=== PATIENT | female | born 1940 ===

== ENCOUNTER 2018-01-14 17:41 | Inpatient (IN) | payer MEDICARE ==
[2018-01-14 17:41] VITALS: BMI 27.3
[2018-01-14 18:23] LABS: BASO # 0.1 K/uL (0.0-0.2); BASO % 0.9 % (0.0-2.0); EOS # 0.3 K/uL (0.0-0.7); EOS % 3.6 % (0.0-4.0); HEMOGLOBIN 11.3 g/dL (12.0-16.0); LYMPH # 1.4 K/uL (1.0-4.3); LYMPH % 20.4 % (20.0-40.0); MEAN CELL VOLUME 70.2 fl (81.0-99.0); MEAN CORPUSCULAR HEMOGLOBIN 22.1 pg (27.0-31.0); MEAN CORPUSCULAR HGB CONC 31.5 g/dL (33.0-37.0); MONO # 0.7 K/uL (0.0-0.8); MONO % 9.6 % (0.0-10.0); NEUT # 4.7 K/uL (1.8-7.0); NEUT % 65.5 % (50.0-75.0); NRBC % 0.1 % (0.0-0.0); RBC 5.11 Mil/uL (3.80-5.20); RED CELL DISTRIBUTION WIDTH 22.2 % (11.5-14.5); WHITE BLOOD COUNT 7.1 K/uL (4.8-10.8)
[2018-01-14 18:30] LABS: INR 0.9; PROTHROMBIN TIME 10.7 Seconds (9.8-13.1)
[2018-01-14 18:33] LABS: ALB/GLOB RATIO 1.4 (1.0-2.1); ALBUMIN 4.3 g/dL (3.5-5.0); ALT/SGPT 29 U/L (9-52); AST/SGOT 32 U/L (14-36); BLOOD UREA NITROGEN 22 mg/dl (7-17); GFR NON-AFRICAN AMERICAN > 60; PARTIAL THROMBOPLASTIN TIME 26.3 Seconds (25.6-37.1)
--- NOTE | 2018-01-14 18:50 | ED PDOC ---
HPI: Trauma/Fall - HPI Time Seen by Provider: 01/14/18 17:48 Chief Complaint (Nursing): Trauma Chief Complaint (Provider): Trauma History Per: Patient History/Exam Limitations: no limitations Onset/Duration Of Symptoms: Hrs (STOCK RECEIVER) Injury Occurred (Timing): Just Before Arrival Location Of Injury: Right: Ankle Additional Complaint(s): 77 year old female with a history of hypertension and high cholesterol presents to the ED with right ankle pain. 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 Patient is unable to walk on right ankle. Her right ankle is swollen and deformed. She has sharp pain that is worse when she tries to move or touch it, but she denies any numbness. PMD: [place] Past Medical History Reviewed: Historical Data, Nursing Documentation, Vital Signs Vital Signs: Last Vital Signs Temp 97.7 F 01/14/18 17:44 Pulse 69 01/14/18 17:44 Resp 18 01/14/18 17:44 BP 192/69 H 01/14/18 17:44 Pulse Ox 100 01/14/18 17:44 - Medical History PMH: HTN, Hypercholesterolemia - Family History Family History: States: Unknown Family Hx - Home Medications Home Medications: Ambulatory Orders Medication Instructions Recorded RX: Atorvastatin [Lipitor] 10 mg PO HS 08/23/16 RX: Meclizine HCl 12.5 mg PO DAILY PRN 08/23/16 RX: amLODIPine [Norvasc] 5 mg PO DAILY 08/23/16 Acetaminophen with Codeine 1 tab PO Q4H PRN #15 tab 01/14/18 [Tylenol with Codeine No. 3 300 mg-30 mg] RX: Hydrochlorothiazide [Microzide] 12.5 mg PO DAILY 01/14/18 RX: Ibuprofen [Motrin Tab] 600 mg PO Q8 PRN #30 tab 01/14/18 Piperacill/Tazo 3.375gm in Dex 3.375 gm IVPB Q8 #15 bag 01/19/18 [Zosyn 3.375 Gm IV] RX: Enoxaparin [Lovenox] 40 mg SC DAILY syr 01/19/18 RX: oxyCODONE/Acetaminophen 1 tab PO Q4 PRN #10 tab 01/19/18 [Percocet 5/325 mg Tab] Vancomycin 1gm in NS 250ml 1 gm IVPB Q12 #10 bag 01/19/18 [Vancomycin 1gm] - Allergies Allergies/Adverse Reactions: Allergies Allergy/AdvReac Type Severity Reaction Status Date / Time No Known Allergies Allergy Verified 01/14/18 17:44 Review of Systems ROS Statement: Except As Marked, All Systems Reviewed And Found Negative Musculoskeletal: Positive for: Other (right ankle pain) Physical Exam - Reviewed Nursing Documentation Reviewed: Yes Vital Signs Reviewed: Yes - Physical Exam Appears: Positive for: Non-toxic, In Acute Distress (painful) Head Exam: Positive for: ATRAUMATIC, NORMOCEPHALIC Skin: Positive for: Warm, Dry Eye Exam: Positive for: EOMI, PERRL ENT: Positive for: Pharynx Is (CLEAR). Negative for: Pharyngeal Erythema, Tonsillar Exudate Neck: Positive for: Painless ROM, Supple Cardiovascular/Chest: Positive for: Regular Rate, Rhythm. Negative for: Murmur Respiratory: Positive for: Normal Breath Sounds. Negative for: Rales, Respiratory Distress Gastrointestinal/Abdominal: Positive for: Soft. Negative for: Tenderness Back: Positive for: Normal Inspection. Negative for: Decreased ROM Extremity: Positive for: Other (Right ankle: diffuse swelling with faint ecchymosis and tenderness to palpation of malleolus with inward angulation at the ankle. Toes move freely, light touch intact, all nerve distribution of foot are less than two second capillary refill, and strong pedal pulse) Lymphatic: Negative for: Adenopathy Neurologic/Psych: Positive for: Alert. Negative for: Motor/Sensory Deficits - Laboratory Results Result Diagrams: 01/19/18 05:40 01/19/18 05:40 - ECG ECG: Positive for: Interpreted By Id ECG Rhythm: Positive for: Normal ST Segment, Sinus Rhythm O2 Sat by Pulse Oximetry: 100 (RA) Pulse Ox Interpretation: Normal Medical Decision Making Medical Decision Making: Time: 1802 Impression: Right ankle injury Fracture vs sprain Initial Plan: --Type and screen --CMP --CBC with differentials --PTT --PT --CXR --Morphine 3 mg IVP --Right ankle XR Time: 1921 --XR demonstrated displaced and dislocated trimalleolar fracture. Case discussed with podiatry resident for further evaluation. 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 Pt to be reduced in ER under procedural sedation --Consents obtained (see forms) [facility] [employer]. --NPO 4 hours ETCO2: Prior to procedure 29, lowest during procedure 24, post procedure 30 Time: 2129 --Postreduction and immobilized. Pt awake and in good spirits. --Improved fracture alignment on postreduction xrays. 2219 Pt continues to be alert and awake. Crutch training in progress 2299 Pt unable to use crutches due to general weakness. High risk fall. Hospitalized for continued management. BELLA Carmen PMD. Scribe Attestation: Documented by Miladis Castro, acting as a scribe for Herlinda Piper MD Provider Scribe Attestation: All medical record entries made by the Scribe were at my direction and personally dictated by me. I have reviewed the chart and agree that the record accurately reflects my personal performance of the history, physical exam, medical decision making, and the department course for this patient. I have also personally directed, reviewed, and agree with the discharge instructions and disposition. Disposition - Clinical Impression Clinical Impression: Closed trimalleolar fracture of ankle, Ankle dislocation, Weakness - Patient ED Disposition Is Patient to be Admitted: Yes Counseled Patient/Family Regarding: Studies Performed, Diagnosis - Disposition Disposition Time: 22:27 Condition: FAIR - Pt Status Changed To: Hospital Disposition Of: Observation - POA Present On Arrival: Falls Or Trauma ED Procedural Sedation - Pre Anesthesia Assessment Chief Complaint: Trauma Last Known Meal: 4 hours ~5pm Past Medical History: Medications Reviewed, Allergies Reviewed, Record Review Previous Surgies: Reviewed Family History/Social History: Reviewed - Physical Exam/Review of Systems Vital Signs Reviewed: Yes Cardiovascular: Regular Rate and Rhythm, Normal S1, S2. denies: Murmurs Respiratory/Chest: Clear to Auscultation, Good Air Exchange. denies: Respiratory Distress, Accessory Muscle Use Neurological: GCS=15, CN II-XII Intact, Speech Normal Abdomen: denies: Tenderness, Distention, Normal Bowel Sounds, Peritoneal Signs Mental Status: Alert and Oriented X 3 - Pre-Procedure Airway Assessment History of difficult intubation or surgical airway (i.e trach):: No Inability to extend neck:: No Mouth opening less than two finger breadth:: No Diagnosis of sleep apnea:: No Less than three finger breadth to hyoid bone:: No ASA Criteria: 1 - Healthy, normal. 2 - Mild systemic disease (No functional limitations, mildline obesity, DM withot complications, Hypertention). 3 - Severe systemic disease (Some functional limitation, stable angina, morbid obesity, controlled COPD/Asthma/CHF). 4 - Sever systemic disease constant threat to life (Unstable angina, active symptoms of COPD/Asthma, CHF/Hypertension. 5 - Moribund ASA Clarification: ASA II Mallampati (airway): Class II - Intra-Procedure (Medications) Medications Given: Discontinued Medications Lidocaine HCl (Lidocaine 1% (20ml)) 20 ml IJ ONCE ONE Stop: 01/14/18 20:53 Morphine Sulfate (Morphine) 3 mg IVP STAT STA Stop: 01/14/18 18:05 Last Admin: 01/14/18 18:12 Dose: 3 mg MAR Pain Assessment Document 01/14/18 18:12 (Rec: 01/14/18 18:12 [email or web address]) Pain Reassessment Is this a pain reassessment? No IVP Administration Document 01/14/18 18:12 (Rec: 01/14/18 18:12 [email or web address] Charges for Administration # of IVP Administrations 1 Propofol (Diprivan) 200 mg IV ONCE ONE Stop: 01/14/18 20:55 MD pushed first does Propofol. See scanned procedure note. Physician Pushed Medication: Yes - Post-Procedure Post Procedure Note: Reevaluation 30 minutes post sedation: pt awake, oriented x 3. Offers no new complaints.
--- NOTE | 2018-01-14 20:27 | CP.PCM.CON ---
History of Present Illness - History of Present Illness History of Present Illness: Podiatry Consult Note for Dr. Oswald: 77 yo female patient, with PMHx of HTN and HLD, seen and evaluated at bedside for R ankle pain. Patient states that she fell down three steps this afternoon and was immediately unable to weightbear. Patient currently rates her pain as 4/10 at this time, however experiences sharp pains when she tries to move the ankle. Denies any other pedal complaints, denies numbness and tingling. Denies N/V/F/SOB/CP/Chills. PMHx: HTN, HLD PSHx: Denies ALL: NKDA Review of Systems - Review of Systems Review of Systems: As per HPI Past Patient History - Past Social History Smoking Status: Never Smoked - CARDIAC Hx Hypercholesterolemia: Yes Hx Hypertension: Yes - PSYCHIATRIC Hx Substance Use: No - SURGICAL HISTORY Hx Surgeries: No - ANESTHESIA Hx Anesthesia: No Meds Allergies/Adverse Reactions: Allergies Allergy/AdvReac Type Severity Reaction Status Date / Time No Known Allergies Allergy Verified 01/14/18 17:44 Physical Exam - Constitutional Appears: Well, Non-toxic, No Acute Distress - Head Exam Head Exam: ATRAUMATIC, NORMOCEPHALIC - Extremities Exam Additional comments: RLE focused exam: Vascular: DP/PT 2/4 bilaterally, CFT < 3 seconds to all digits, TG warm to warm, +2 edema noted circumfrentially to the ankle, perimalleolar Ortho: Gross deformity noted to the ankle joint with lateral dislocation of the foot in relation to the leg, pain to palpation of the ankle joint appreciated Neuro: Gross and protective sensation intact Derm: No open lesions, mild erythema with ecchymosis noted to ankle joint circumferential - Neurological Exam Neurological exam: Alert, Oriented x3 - Psychiatric Exam Psychiatric exam: Normal Affect, Normal Mood Results - Vital Signs Recent Vital Signs: Last Vital Signs Temp 97.7 F 01/14/18 17:44 Pulse 69 01/14/18 17:44 Resp 18 01/14/18 17:44 BP 192/69 H 01/14/18 17:44 Pulse Ox 100 01/14/18 19:24 - Labs Result Diagrams: 01/14/18 18:15 01/14/18 18:15 Labs: Laboratory Results - last 24 hr 01/14/18 01/14/18 01/14/18 18:15 18:15 18:15 WBC 7.1 RBC 5.11 Hgb 11.3 L Hct 35.9 MCV 70.2 L D MCH 22.1 L MCHC 31.5 L RDW 22.2 H Plt Count 187 MPV 10.0 Neut % (Auto) 65.5 Lymph % (Auto) 20.4 [place] % (Auto) 9.6 Eos % (Auto) 3.6 Baso % (Auto) 0.9 Neut # (Auto) 4.7 Lymph # (Auto) 1.4 [place] # (Auto) 0.7 Eos # (Auto) 0.3 Baso # (Auto) 0.1 PT 10.7 INR 0.9 APTT 26.3 Sodium 139 Potassium 3.7 Chloride 103 Carbon Dioxide 29 Anion Gap 11 BUN 22 H Creatinine 0.7 Est GFR ( Amer) > 60 Est GFR (Non-Af Amer) > 60 Random Glucose 112 H Calcium 10.0 Total Bilirubin 0.4 AST 32 ALT 29 Alkaline Phosphatase 95 Total Protein 7.5 Albumin 4.3 Globulin 3.2 Albumin/Globulin Ratio 1.4 Blood Type Antibody Screen BBK History Checked 01/14/18 18:15 WBC RBC Hgb Hct MCV MCH MCHC RDW Plt Count MPV Neut % (Auto) Lymph % (Auto) [place] % (Auto) Eos % (Auto) Baso % (Auto) Neut # (Auto) Lymph # (Auto) [place] # (Auto) Eos # (Auto) Baso # (Auto) PT INR APTT Sodium Potassium Chloride Carbon Dioxide Anion Gap BUN Creatinine Est GFR ( Amer) Est GFR (Non-Af Amer) Random Glucose Calcium Total Bilirubin AST ALT Alkaline Phosphatase Total Protein Albumin Globulin Albumin/Globulin Ratio Blood Type O POSITIVE Antibody Screen Negative BBK History Checked No verified bt Assessment & Plan - Assessment and Plan (Free Text) Assessment: 77 yo female patient, with PMHx of HTN and HLD, seen and evaluated at bedside for R dislocated ankle with trimalleloar fracture Plan: Patient seen and evaluated with all questions and concerns addressed R ankle x-rays taken and reviewed; gross dislocation of the ankle joint with subsequent fibular and tibia fractures, official read pending After obtaining consent, hematoma block of 8cc of 2% lidocaine given and closed reduction of R ankle was performed AO splint applied to RLE Post reduction x-rays taken; ankle within ankle mortise, reduction obtained, official read pending CT of RLE ordered; results pending Encouraged patient to keep leg elevated and ice behind knee multiple times daily Patient to remain strict NWB to RLE with the use of crutches Patient to follow up with Dr. Oswald in clinic at [facility] on Tuesday's or in office Thank you for the consult - Date & Time Date: 01/14/18 Time: 21:45
[2018-01-14] MEDS ORDERED: Lidocaine 1% Inj (20ml) IJ ONE (20:52)
[2018-01-14] MEDS ORDERED: Propofol 10 mg/ml Inj (20 ML) IV ONE (20:54)
[2018-01-14] MEDS ORDERED: Propofol 10 mg/ml Inj (20 ML) ONE (20:55)
[2018-01-14] MEDS ORDERED: Lidocaine PF 2% (5 ml) Inj (For Cardiac Arrhy) ONE ×2 (20:56→20:59)
--- NOTE | 2018-01-15 08:38 | CARD ---
APPROVED REPORT Date of service: 01/14/2018 EKG Measurement Heart [id number] <Conclusion> Normal sinus rhythm Possible Left atrial enlargement Nonspecific ST abnormality Abnormal ECG
--- NOTE | 2018-01-15 08:40 | RAD ---
Date of service: 01/14/2018 PROCEDURE: Left Ankle Radiographs. HISTORY: R foot dislocation COMPARISON: 01/14/2018 at 18:37 FINDINGS: BONES: Three views of the right ankle were compared to the prior study. There has been significant interval reduction of previously identified ankle fracture dislocation. Ankle mortise is now in grossly normal anatomic position. Distal fibular and tibial fractures appear in improved alignment. Moderate soft tissue swelling persists. JOINTS: See above. SOFT TISSUES: Soft tissue swelling OTHER FINDINGS: Calcaneus and subtalar joint are unremarkable. IMPRESSION: Reduction of previously noted right ankle joint fracture and dislocation.
--- NOTE | 2018-01-15 09:02 | RAD ---
Date of service: 01/14/2018 PROCEDURE: CHEST RADIOGRAPH, 1 VIEW HISTORY: RIGHT ankle injury COMPARISON: None available. FINDINGS: LUNGS: No focal infiltrate. Minimal linear scarring in the right lower lobe. PLEURA: No pneumothorax or pleural fluid seen. CARDIOVASCULAR: Minimal aortic atherosclerotic calcification present. Heart is enlarged. OSSEOUS STRUCTURES: No significant abnormalities. VISUALIZED UPPER ABDOMEN: Normal. OTHER FINDINGS: None. IMPRESSION: No active disease.
[2018-01-15] MEDS: Enoxaparin 40 mg Syringe SC SCH (09:03)
--- NOTE | 2018-01-15 09:04 | RAD ---
Date of service: 01/14/2018 PROCEDURE: Right Ankle Radiographs. HISTORY: RIGHT ankle injury COMPARISON: None available. FINDINGS: BONES: Three views of the right ankle were performed. There is evidence of a severe right ankle dislocation with associated fractures. There is a comminuted angulated fracture of the distal right fibula and probable medial malleolar and possible posterior malleolar fractures. There is disruption of the ankle mortise. Talar dome is suboptimally evaluated due to overlap. No tarsal bone fracture is seen elsewhere. JOINTS: See above. SOFT TISSUES: Soft tissue swelling. OTHER FINDINGS: None. IMPRESSION: Probable trimalleolar fracture with ankle dislocation.
[2018-01-15 10:10] LABS: BASO % 0.4 % (0.0-2.0); EOS # 0.1 K/uL (0.0-0.7); EOS % 1.1 % (0.0-4.0); HEMOGLOBIN 10.2 g/dL (12.0-16.0); LYMPH % 13.3 % (20.0-40.0); MEAN CELL VOLUME 71.4 fl (81.0-99.0); MEAN CORPUSCULAR HGB CONC 30.8 g/dL (33.0-37.0); MEAN PLATELET VOLUME 9.2 fl (7.2-11.7); MONO # 0.6 K/uL (0.0-0.8); MONO % 8.2 % (0.0-10.0); NEUT # 5.6 K/uL (1.8-7.0); RBC 4.65 Mil/uL (3.80-5.20); WHITE BLOOD COUNT 7.2 K/uL (4.8-10.8)
[2018-01-15 10:49] LABS: LDL CHOLESTEROL 87 mg/dL (0-129)
[2018-01-15 10:52] LABS: T4 10.3 ug/dl (5.5-11.0)
[2018-01-15 11:25] LABS: BLOOD UREA NITROGEN 15 mg/dl (7-17); GFR NON-AFRICAN AMERICAN > 60
[2018-01-15 11:26] LABS: ALB/GLOB RATIO 1.4 (1.0-2.1); ALT/SGPT 26 U/L (9-52); AST/SGOT 30 U/L (14-36); CALCIUM 9.2 mg/dL (8.4-10.2)
[2018-01-15 11:27] LABS: HDL CHOLESTEROL 90 MG/DL (30-70)
--- NOTE | 2018-01-15 13:04 | CT ---
Date of service: 01/14/2018 PROCEDURE: CT scan of the right ankle without contrast HISTORY: R ankle dislocation COMPARISON: X-ray right ankle same day TECHNIQUE: CT scan of the right ankle was performed utilizing multiple helical axial images. Coronal and sagittal images were also obtained. The examination was performed with CT dose lowering techniques which would include iterative reconstruction, decreasing mA or kv dose. FINDINGS: There is evidence of a trimalleolar fracture of the right ankle which has been reduced since the prior x-ray exam. This would include oblique comminuted fracture of the distal right fibula, medial malleolar fracture and posterior malleolar fracture. Talar dome appears to be intact as well as the visualized calcaneus. Tarsal sinus and subtalar joint are unremarkable. Overlying soft tissue swelling is seen. Tiny bone fragment is also seen anterior to the tibial plafond region which may reflect additional small avulsion. IMPRESSION: Trimalleolar right ankle fracture.
--- NOTE | 2018-01-15 13:20 | CP.PCM.HP ---
History of Present Illness - History of Present Illness History of Present Illness: CC: R ankle pain. 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 Worsening symptoms: R ankle Fx and dislocation on X-Ray. Aggravated Factor: Walking/ weightbear. Pt denied: Fever, chills, n/v/d, abdominal pain, urinary symptoms, CP, syncope, numbness, tingles, SOB, cough, sick contact. EKG: Normal sinus rhythm. CXR: No active disease. R ankle CXR: Possible Trimalleolar Fx with ankle dislocation. Present on Admission - Present on Admission Any Indicators Present on Admission: No Review of Systems - Constitutional Constitutional: Frequent Falls - EENT Eyes: Other (negative) Ears: Other (negative) Nose/Mouth/Throat: Other (negative) - Cardiovascular Cardiovascular: Other (negative) - Respiratory Respiratory: Other (negative) - Gastrointestinal Gastrointestinal: Other (negative) - Genitourinary Genitourinary: Other (negative) - Musculoskeletal Musculoskeletal: Other (R ankle pain 2nd to fx.) - Integumentary Integumentary: Other (Ecchymosis around R ankle.) - Neurological Neurological: Other (negative) - Psychiatric Psychiatric: Other (negative) - Endocrine Endocrine: Other (negative) - Hematologic/Lymphatic Hematologic: Other (negative) Past Patient History - Past Medical History & Family History Pertinent Family History: Unknown - Past Social History Smoking Status: Never Smoked Alcohol: None Drugs: Denies Home Situation {Lives}: With Family - CARDIAC Hx Cardiac Disorders: Yes Hx Hypercholesterolemia: Yes Hx Hypertension: Yes - PULMONARY Hx Respiratory Disorders: No - NEUROLOGICAL Hx Neurological Disorder: No - HEENT Hx HEENT Problems: No - RENAL Hx Chronic Kidney Disease: No - ENDOCRINE/METABOLIC Hx Endocrine Disorders: No - HEMATOLOGICAL/ONCOLOGICAL Hx Blood Disorders: No - MUSCULOSKELETAL/RHEUMATOLOGICAL Hx Musculoskeletal Disorders: Yes Hx Falls: Yes - GASTROINTESTINAL Hx Gastrointestinal Disorders: No - GENITOURINARY/GYNECOLOGICAL Hx Genitourinary Disorders: No - PSYCHIATRIC Hx Psychophysiologic Disorder: No Hx Substance Use: No - SURGICAL HISTORY Hx Surgeries: No - ANESTHESIA Hx Anesthesia: No Hx Anesthesia Reactions: No Hx Malignant Hyperthermia: No Meds Home Medications: Home Medication List Medication Instructions Recorded Confirmed Type Acetaminophen with Codeine 1 tab PO Q4H PRN #15 tab 01/14/18 Rx [Tylenol with Codeine No. 3 300 mg-30 mg] Ibuprofen [Motrin Tab] 600 mg PO Q8 PRN #30 tab 01/14/18 Rx Enoxaparin [Lovenox] 40 mg SC DAILY syr 01/19/18 Rx Piperacill/Tazo 3.375gm in Dex 3.375 gm IVPB Q8 #15 bag 01/19/18 Rx [Zosyn 3.375 Gm IV] Vancomycin 1gm in NS 250ml 1 gm IVPB Q12 #10 bag 01/19/18 Rx [Vancomycin 1gm] oxyCODONE/Acetaminophen [Percocet 1 tab PO Q4 PRN #10 tab 01/19/18 Rx 5/325 mg Tab] Allergies/Adverse Reactions: Allergies Allergy/AdvReac Type Severity Reaction Status Date / Time No Known Allergies Allergy Verified 01/14/18 17:44 Physical Exam - Constitutional Appears: No Acute Distress - Head Exam Head Exam: NORMAL INSPECTION - Eye Exam Eye Exam: PERRL - ENT Exam ENT Exam: Normal Exam - Respiratory Exam Respiratory Exam: Clear to Auscultation Bilateral - Cardiovascular Exam Cardiovascular Exam: REGULAR RHYTHM - GI/Abdominal Exam GI & Abdominal Exam: Normal Bowel Sounds, Soft - Extremities Exam Additional comments: RLE with splint in place, increased pain with touching R ankle area. - Back Exam Back exam: NORMAL INSPECTION - Neurological Exam Neurological exam: Alert, Oriented x3 Additional comments: No motor/sensory deficit - Psychiatric Exam Psychiatric exam: Normal Mood - Skin Skin Exam: Warm Results - Vital Signs Recent Vital Signs: Last Vital Signs Temp 98.4 F 01/15/18 08:11 Pulse 78 01/15/18 09:06 Resp 20 01/15/18 08:11 BP 137/69 01/15/18 11:50 Pulse Ox 97 01/15/18 08:11 reviewed Louise - Labs Result Diagrams: 01/19/18 05:40 01/19/18 05:40 Labs: Laboratory Results - last 24 hr 01/14/18 01/14/18 01/14/18 18:15 18:15 18:15 WBC 7.1 RBC 5.11 Hgb 11.3 L Hct 35.9 MCV 70.2 L D MCH 22.1 L MCHC 31.5 L RDW 22.2 H Plt Count 187 MPV 10.0 Neut % (Auto) 65.5 Lymph % (Auto) 20.4 [place] % (Auto) 9.6 Eos % (Auto) 3.6 Baso % (Auto) 0.9 Neut # (Auto) 4.7 Lymph # (Auto) 1.4 [place] # (Auto) 0.7 Eos # (Auto) 0.3 Baso # (Auto) 0.1 PT 10.7 INR 0.9 APTT 26.3 Sodium 139 Potassium 3.7 Chloride 103 Carbon Dioxide 29 Anion Gap 11 BUN 22 H Creatinine 0.7 Est GFR ( Amer) > 60 Est GFR (Non-Af Amer) > 60 Random Glucose 112 H Calcium 10.0 Total Bilirubin 0.4 AST 32 ALT 29 Alkaline Phosphatase 95 Total Protein 7.5 Albumin 4.3 Globulin 3.2 Albumin/Globulin Ratio 1.4 LDL Cholesterol Direct Thyroxine (T4) TSH 3rd Generation Blood Type Blood Type Confirm Antibody Screen BBK History Checked 01/14/18 01/14/18 01/15/18 18:15 18:15 10:00 WBC 7.2 RBC 4.65 Hgb 10.2 L Hct 33.2 L MCV 71.4 L MCH 22.0 L MCHC 30.8 L RDW 22.0 H Plt Count 174 MPV 9.2 Neut % (Auto) 77.0 H Lymph % (Auto) 13.3 L [place] % (Auto) 8.2 Eos % (Auto) 1.1 Baso % (Auto) 0.4 Neut # (Auto) 5.6 Lymph # (Auto) 1.0 [place] # (Auto) 0.6 Eos # (Auto) 0.1 Baso # (Auto) 0.0 PT INR APTT Sodium Potassium Chloride Carbon Dioxide Anion Gap BUN Creatinine Est GFR ( Amer) Est GFR (Non-Af Amer) Random Glucose Calcium Total Bilirubin AST ALT Alkaline Phosphatase Total Protein Albumin Globulin Albumin/Globulin Ratio LDL Cholesterol Direct Thyroxine (T4) TSH 3rd Generation Blood Type O POSITIVE Blood Type Confirm O POSITIVE Antibody Screen Negative BBK History Checked No verified bt 01/15/18 10:00 WBC RBC Hgb Hct MCV MCH MCHC RDW Plt Count MPV Neut % (Auto) Lymph % (Auto) [place] % (Auto) Eos % (Auto) Baso % (Auto) Neut # (Auto) Lymph # (Auto) [place] # (Auto) Eos # (Auto) Baso # (Auto) PT INR APTT Sodium Potassium Chloride Carbon Dioxide Anion Gap BUN Creatinine Est GFR ( Amer) > 60 Est GFR (Non-Af Amer) > 60 Random Glucose Calcium Total Bilirubin AST ALT Alkaline Phosphatase Total Protein Albumin Globulin Albumin/Globulin Ratio LDL Cholesterol Direct 87 Thyroxine (T4) 10.3 TSH 3rd Generation 1.15 Blood Type Blood Type Confirm Antibody Screen BBK History Checked reviewed J.P. - EKG Data EKG comments: reviewed J.P. - Impressions Impression: R ankle X-Ray: Reviewed J.P. - Imaging and Cardiology Chest x-ray Status: Report reviewed by me (Louise) Assessment & Plan (1) Closed trimalleolar fracture of ankle Status: Deleted Priority: High (2) Ankle dislocation Status: Deleted Priority: High (3) HTN (hypertension) Status: Chronic Priority: Medium (4) Hypercholesterolemia Status: Chronic Priority: Medium - Assessment and Plan (Free Text) Assessment: S/P Reduction R ankle joint Fx and dislocation. Plan: Continue Morphine, Lovenox, Norvasc, Lipitor and rest of Tx, f/u PT, OT. Podiatry consult appreciated. - Date & Time Date: 01/15/18
--- NOTE | 2018-01-15 14:38 | CP.PCM.PN ---
Subjective - Date & Time of Evaluation Date of Evaluation: 01/15/18 Time of Evaluation: 14:36 - Subjective Subjective: Podiatry Progress Note: Dr. Oswald 77F patient, seen and evaluated at bedside for s/p 1 day R ankle fracture closed reduction. Patient is resting comfortably in bed and in NAD. She denies any numbness to her RLE. She notes that her pain is well controlled today. Denies N/V/F/SOB/CP. Patient was admitted for observation and walker training to E. Objective - Vital Signs/Intake and Output Vital Signs (last 24 hours): Temp Pulse Resp BP Pulse Ox 98.4 F 78 20 137/69 97 01/15/18 08:11 01/15/18 09:06 01/15/18 08:11 01/15/18 11:50 01/15/18 08:11 - Medications Medications: Current Medications Acetaminophen (Tylenol 325mg Tab) 650 mg PO Q6 PRN PRN Reason: Pain, Mild (1-3) Last Admin: 01/15/18 09:07 Dose: 650 mg Amlodipine Besylate (Norvasc) 5 mg PO DAILY [facility] Last Admin: 01/15/18 09:06 Dose: 5 mg Atorvastatin Calcium (Lipitor) 10 mg PO [facility] Enoxaparin Sodium (Lovenox) 40 mg SC DAILY [facility]; Protocol Last Admin: 01/15/18 09:03 Dose: 40 mg Hydrochlorothiazide (Microzide) 12.5 mg PO DAILY [facility] Last Admin: 01/15/18 09:03 Dose: 12.5 mg Meclizine HCl (Antivert) 12.5 mg PO DAILY PRN PRN Reason: Dizziness Morphine Sulfate (Morphine) 3 mg IVP Q3 PRN PRN Reason: Pain, moderate (4-7) - Labs Labs: 01/15/18 10:00 PT 10.7 Seconds (9.8-13.1) 01/14/18 18:15 INR 0.9 01/14/18 18:15 APTT 26.3 Seconds (25.6-37.1) 01/14/18 18:15 - Constitutional Appears: Well, Non-toxic, No Acute Distress - Head Exam Head Exam: ATRAUMATIC, NORMOCEPHALIC - Extremities Exam Additional comments: RLE focused exam: Posterior splint C/D/I to RLE Vascular: DP/PT 2/4 bilaterally, CFT < 3 seconds to all digits, TG warm to warm, +2 edema noted circumfrentially to the ankle, perimalleolar Ortho: Gross deformity noted to the ankle joint with lateral dislocation of the foot in relation to the leg, pain to palpation of the ankle joint appreciated Neuro: Gross and protective sensation intact Derm: No open lesions, mild erythema with ecchymosis noted to ankle joint circumferential - Neurological Exam Neurological Exam: Alert, Awake, Oriented x3 - Psychiatric Exam Psychiatric exam: Normal Affect, Normal Mood Assessment and Plan - Assessment and Plan (Free Text) Assessment: 77F patient, seen and evaluated at bedside for s/p 1 day R ankle fracture closed reduction. Plan: Patient seen and evaluated, discussed patient with Dr. Darek Vyas ankle x-rays taken and reviewed; Reduced ankle with trimalleolar fracture AO splint to RLE, patient instructed to leave C/D/I Post reduction x-rays taken; ankle within ankle mortise, reduction obtained, official read pending CT of RLE ordered; Trimalleolar ankle fracture Encouraged patient to keep leg elevated and ice behind knee multiple times daily Patient to remain strict NWB to RLE with the use of crutches or walker PT evaluation and reccs appreciated Patient to follow up with Dr. Darek feldman Tuesday after D/C
[2018-01-16] MEDS: Enoxaparin 40 mg Syringe SC SCH (10:01)
[2018-01-16 10:35] LABS: HEMOGLOBIN 10.7 g/dL (12.0-16.0); MEAN CELL VOLUME 71.4 fl (81.0-99.0); MEAN CORPUSCULAR HEMOGLOBIN 21.9 pg (27.0-31.0); MEAN CORPUSCULAR HGB CONC 30.7 g/dL (33.0-37.0); RBC 4.86 Mil/uL (3.80-5.20); RED CELL DISTRIBUTION WIDTH 22.2 % (11.5-14.5); WHITE BLOOD COUNT 9.6 K/uL (4.8-10.8)
[2018-01-16 10:48] LABS: ALB/GLOB RATIO 1.3 (1.0-2.1); ALBUMIN 4.1 g/dL (3.5-5.0); ALT/SGPT 24 U/L (9-52); AST/SGOT 28 U/L (14-36); BLOOD UREA NITROGEN 19 mg/dl (7-17); CALCIUM 9.4 mg/dL (8.4-10.2); GFR NON-AFRICAN AMERICAN > 60
--- NOTE | 2018-01-16 16:10 | CP.PCM.PN ---
Subjective - Date & Time of Evaluation Date of Evaluation: 01/16/18 Time of Evaluation: 12:20 - Subjective Subjective: F/U Fx R Ankle Mild pain R ankle, difficuly to walk with crutches with PT Objective - Vital Signs/Intake and Output Vital Signs (last 24 hours): Temp Pulse Resp BP Pulse Ox 100.3 F H 93 H 18 124/72 95 01/16/18 16:01 01/16/18 16:01 01/16/18 16:01 01/16/18 16:01 01/16/18 16:01 - Medications Medications: Current Medications Acetaminophen (Tylenol 325mg Tab) 650 mg PO Q6 PRN PRN Reason: Pain, Mild (1-3) Last Admin: 01/16/18 00:03 Dose: 650 mg Amlodipine Besylate (Norvasc) 5 mg PO DAILY [facility] Last Admin: 01/16/18 10:01 Dose: 5 mg Atorvastatin Calcium (Lipitor) 10 mg PO HS [facility] Last Admin: 01/15/18 21:30 Dose: 10 mg Enoxaparin Sodium (Lovenox) 40 mg SC DAILY [facility]; Protocol Last Admin: 01/16/18 10:01 Dose: 40 mg Hydrochlorothiazide (Microzide) 12.5 mg PO DAILY [facility] Last Admin: 01/16/18 10:01 Dose: 12.5 mg Meclizine HCl (Antivert) 12.5 mg PO DAILY PRN PRN Reason: Dizziness Morphine Sulfate (Morphine) 3 mg IVP Q3 PRN PRN Reason: Pain, moderate (4-7) Last Admin: 01/16/18 10:06 Dose: 3 mg - Labs Labs: 01/16/18 10:24 01/16/18 10:24 PT 10.7 Seconds (9.8-13.1) 01/14/18 18:15 INR 0.9 01/14/18 18:15 APTT 26.3 Seconds (25.6-37.1) 01/14/18 18:15 - Constitutional Appears: No Acute Distress - Head Exam Head Exam: NORMAL INSPECTION - Eye Exam Eye Exam: PERRL - ENT Exam ENT Exam: Normal Exam - Neck Exam Neck Exam: Normal Inspection - Respiratory Exam Respiratory Exam: Clear to Ausculation Bilateral - Cardiovascular Exam Cardiovascular Exam: REGULAR RHYTHM - GI/Abdominal Exam GI & Abdominal Exam: Soft, Normal Bowel Sounds - Extremities Exam Additional comments: R Ankle -leg splint in place, moves well toes - Back Exam Back Exam: NORMAL INSPECTION - Neurological Exam Neurological Exam: Alert, Oriented x3. absent: Motor Sensory Deficit - Psychiatric Exam Psychiatric exam: Normal Mood - Skin Skin Exam: Warm Assessment and Plan (1) Closed trimalleolar fracture of ankle Status: Acute (2) Ankle dislocation Status: Acute (3) HTN (hypertension) Status: Chronic (4) Hypercholesterolemia Status: Chronic - Assessment and Plan (Free Text) Plan: for ORIF R ankle in am, CBC ,CMP , PT, PTT, INR, CXR, EKG reviewed, Patient is medically cleared for surgery
--- NOTE | 2018-01-16 17:24 | CP.PCM.PN ---
Subjective - Date & Time of Evaluation Date of Evaluation: 01/16/18 Time of Evaluation: 17:23 - Subjective Subjective: Podiatry Progress Note: Dr. Oswald 77F patient, seen and evaluated at bedside for s/p 2 day R ankle fracture closed reduction. Patient is resting comfortably in bed and in NAD. She denies any numbness to her RLE. She notes that her pain is well controlled today. Denies N/V/F/SOB/CP. Patient states she is having difficulty using the crutches and would like for her surgery to go sooner. Objective - Vital Signs/Intake and Output Vital Signs (last 24 hours): Temp Pulse Resp BP Pulse Ox 100.3 F H 93 H 18 124/72 95 01/16/18 16:01 01/16/18 16:01 01/16/18 16:01 01/16/18 16:01 01/16/18 16:01 - Medications Medications: Current Medications Acetaminophen (Tylenol 325mg Tab) 650 mg PO Q6 PRN PRN Reason: Pain, Mild (1-3) Last Admin: 01/16/18 00:03 Dose: 650 mg Amlodipine Besylate (Norvasc) 5 mg PO DAILY [facility] Last Admin: 01/16/18 10:01 Dose: 5 mg Atorvastatin Calcium (Lipitor) 10 mg PO HS [facility] Last Admin: 01/15/18 21:30 Dose: 10 mg Enoxaparin Sodium (Lovenox) 40 mg SC DAILY [facility]; Protocol Last Admin: 01/16/18 10:01 Dose: 40 mg Hydrochlorothiazide (Microzide) 12.5 mg PO DAILY [facility] Last Admin: 01/16/18 10:01 Dose: 12.5 mg Meclizine HCl (Antivert) 12.5 mg PO DAILY PRN PRN Reason: Dizziness Morphine Sulfate (Morphine) 3 mg IVP Q3 PRN PRN Reason: Pain, moderate (4-7) Last Admin: 01/16/18 10:06 Dose: 3 mg - Labs Labs: 01/16/18 10:24 01/16/18 10:24 PT 10.7 Seconds (9.8-13.1) 01/14/18 18:15 INR 0.9 01/14/18 18:15 APTT 26.3 Seconds (25.6-37.1) 11/10/18 18:15 - Constitutional Appears: Well, Non-toxic - Head Exam Head Exam: ATRAUMATIC - Extremities Exam Additional comments: RLE focused exam: Posterior splint C/D/I to RLE Vascular: DP/PT 2/4 bilaterally, CFT < 3 seconds to all digits, TG warm to warm, +2 edema noted circumferentially to the ankle, perimalleolar Ortho: Gross deformity noted to the ankle joint with lateral dislocation of the foot in relation to the leg, pain to palpation of the ankle joint appreciated Neuro: Gross and protective sensation intact Derm: No open lesions, mild erythema with ecchymosis noted to ankle joint circumferential - Neurological Exam Neurological Exam: Alert, Awake - Psychiatric Exam Psychiatric exam: Normal Affect - Skin Skin Exam: Normal Color Assessment and Plan - Assessment and Plan (Free Text) Assessment: 77F patient, seen and evaluated at bedside for s/p 2 day R ankle fracture closed reduction. Plan: Patient seen and evaluated, discussed patient with Dr. Darek Vyas ankle x-rays taken and reviewed; Reduced ankle with trimalleolar fracture AO splint to RLE, patient instructed to leave C/D/I Post reduction x-rays taken; ankle within ankle mortise, reduction obtained, trimalleolar fracture. CT of RLE ordered; Trimalleolar ankle fracture Encouraged patient to keep leg elevated and ice behind knee multiple times daily Patient to remain strict NWB to RLE with the use of crutches or walker Right ankle ORIF scheduled for tomorrow 01/17 at 9:00 am Please provide medical clearance NPO order placed. lovenox put on hold
[2018-01-16 21:22] LABS: SQUAMOUS EPITHIAL < 1 /hpf (0-5); URINE BILIRUBIN NEGATIVE (NEGATIVE); URINE BLOOD SMALL (NEGATIVE); URINE CLARITY CLEAR (Clear); URINE COLOR YELLOW (YELLOW); URINE GLUCOSE (UA) NEG (Normal); URINE LEUKOCYTE ESTERASE NEG Leu/uL (Negative); URINE PROTEIN NEGATIVE (NEGATIVE); URINE UROBILINOGEN 0.2-1.0 mg/dL (0.2-1.0)
[2018-01-16] MEDS: Piperacillin/Tazobact 3.375 GM in Sodium Chloride 0.9% 100 ML IVPB SCH (22:07)
[2018-01-17] MEDS: Piperacillin/Tazobact 3.375 GM in Sodium Chloride 0.9% 100 ML IVPB SCH ×4 (03:57→21:15)
[2018-01-17] MEDS ORDERED: Lidocaine 1% Inj (20ml) IJ ONE (09:42)
[2018-01-17] MEDS ORDERED: ceFAZolin 1 GM in Sodium Chloride 0.9% 100 ML IVPB ONE (09:42)
[2018-01-17] MEDS ORDERED: Bupivacaine 0.5% Inj(30mL) IJ ONE (09:42)
[2018-01-17] MEDS ORDERED: Sodium Chloride 0.9% 1,000 ML IV SCH (09:45)
--- NOTE | 2018-01-17 09:56 | CP.PCM.PN ---
Subjective - Date & Time of Evaluation Date of Evaluation: 01/17/18 Time of Evaluation: 09:54 - Subjective Subjective: Podiatry Progress Note: Dr. Oswald 77F patient, seen and evaluated at bedside for s/p 3 day R ankle fracture closed reduction. Patient is resting comfortably in bed and in NAD. She denies any numbness to her RLE. She notes that her pain is well controlled today. NPO status was confirmed. Denies N/V/F/SOB/CP. Objective - Vital Signs/Intake and Output Vital Signs (last 24 hours): Temp Pulse Resp BP Pulse Ox 97.9 F 88 19 133/68 95 01/17/18 08:00 01/17/18 08:00 01/17/18 08:00 01/17/18 08:00 01/17/18 08:00 - Medications Medications: Current Medications Acetaminophen (Tylenol 325mg Tab) 650 mg PO Q6 PRN PRN Reason: Pain, Mild (1-3) Last Admin: 01/16/18 00:03 Dose: 650 mg Amlodipine Besylate (Norvasc) 5 mg PO DAILY [facility] Last Admin: 01/17/18 08:31 Dose: Not Given Atorvastatin Calcium (Lipitor) 10 mg PO HS [facility] Last Admin: 01/16/18 22:08 Dose: 10 mg Enoxaparin Sodium (Lovenox) 40 mg SC DAILY [facility]; Protocol Last Admin: 01/16/18 10:01 Dose: 40 mg Hydrochlorothiazide (Microzide) 12.5 mg PO DAILY [facility] Last Admin: 01/17/18 08:30 Dose: Not Given Piperacillin Sod/Tazobactam (Sod 3.375 gm/ Sodium Chloride) 100 mls @ 100 mls/hr IVPB Q6 [facility]; Protocol Last Admin: 01/17/18 09:00 Dose: 100 mls/hr Cefazolin Sodium 1 gm/ Sodium (Chloride) 100 mls @ 100 mls/hr IVPB ONCE ONE; Protocol Stop: 01/17/18 10:41 Sodium Chloride (Sodium Chloride 0.9%) 1,000 mls @ 0 mls/hr IV .Q0M [facility] Stop: 01/18/18 09:42 Meclizine HCl (Antivert) 12.5 mg PO DAILY PRN PRN Reason: Dizziness Morphine Sulfate (Morphine) 3 mg IVP Q3 PRN PRN Reason: Pain, moderate (4-7) Last Admin: 01/16/18 22:06 Dose: 3 mg - Labs Labs: 01/16/18 10:24 01/16/18 10:24 PT 10.7 Seconds (9.8-13.1) 01/14/18 18:15 INR 0.9 01/14/18 18:15 APTT 26.3 Seconds (25.6-37.1) 01/14/18 18:15 - Constitutional Appears: Well, Non-toxic - Head Exam Head Exam: ATRAUMATIC - Extremities Exam Additional comments: Dressing clean, dry and intact Assessment and Plan - Assessment and Plan (Free Text) Assessment: 77F patient, seen and evaluated at bedside for s/p 3 day R ankle fracture closed reduction. Plan: Pt was seen and examined Pt NPO status was confirmed All pre-op testing and clearance in chart Pt has exhausted all conservative treatment at this time and is opting for surgical intervention Pt was explained procedure and post-operative course All pt's questions were answered to satisfaction No guarantees were made Pt understands all risks, benefits and complications of procedure Pt will follow-up with Dr. Oswald within 1 week of surgery Patient unable to use crutches, patient will remain nonweightbearing to the right lower extremity. Plan: Patient stable for discharge to subacute rehab from podiatry point of view. patient will follow up with Dr. Oswald within a week of discharge. Dressing will stay on, and be kept dry/ clean and intact.
[2018-01-17] MEDS ORDERED: Bupivacaine HCl 0.5% PF (30 ml) Inj ONE (10:28)
[2018-01-17] MEDS ORDERED: Lidocaine 1% Inj (20ml) ONE (10:28)
[2018-01-17] MEDS ORDERED: Lidocaine 4% (Laryng-O-Jet) Kit MM ONE (10:43)
[2018-01-17] MEDS ORDERED: EPINEPHrine 1 mg/ml (1:1000) Inj ONE (10:43)
[2018-01-17] MEDS ORDERED: Rocuronium 10 mg/ml (5 ml) ONE (10:43)
[2018-01-17] MEDS ORDERED: Propofol 10 mg/ml Inj (20 ML) ONE (10:43)
[2018-01-17] MEDS ORDERED: Bupivacaine HCl 0.25% PF (30 ml) Inj ONE (10:43)
[2018-01-17] MEDS ORDERED: Lactated Ringer's 1,000 ML IV ONE (10:50)
[2018-01-17] MEDS ORDERED: Dexamethasone 4 mg/1 ml ONE (11:40)
[2018-01-17] MEDS ORDERED: Phenylephrine 10 mg/ml Inj ONE (13:36)
[2018-01-17] MEDS ORDERED: Neostigmine 1:1000 (1 mg/ml) Inj ONE (13:41)
[2018-01-17] MEDS ORDERED: Dexamethasone 4 mg/1 ml IVP PRN (14:41)
[2018-01-17] MEDS ORDERED: HYDROmorphone 0.5 mg/0.5 ml ISec IVP PRN (14:41)
--- NOTE | 2018-01-17 14:44 | PCM.ANESB7 ---
Adductor Canal Block - Adductor Canal Block Date of Procedure: 01/17/18 Anesthiologist: Jose Peraza Pre-Procedure Diagnosis: R ankle fracture Post-Procedure Diagnosis: Same Procedure Performed: Adductor Canal Block Right - Procedure Adductor Canal Block: The procedure was explained to the patient that it is for the post-operative pain management. Consent was obtained after a thorough discussion with the patient regarding the benefits and possible complications of local anesthetic adductor canal block of the femoral nerve. Standard monitors, as defined by the ASA, were applied to the patient. Time-out was held with the circulating nurse to confirm the appropriate block. After applying supplemental oxygen and administering IV Sedation as needed, the patient was placed in supine position with and the operative leg was flexed slightly at the knee and externally rotated as needed, and was kept anatomically stable. The mid-thigh of the right lower extremity was exposed. The ultrasound transducer was then applied transversely along the medial aspect, about midway down the thigh and the femoral artery and vein were identified in appropriate relation with the sartorius muscle. At this time, the femoral nerve was visualized lateral to the femoral artery within the canal. After thorough identification, this area area was prepped with Chloroprep solution and 1 % Lidocaine was injected subcutaneously for topical anesthesia. At this point, a #22 gauge Stimuplex 4-inch needle was inserted in-plane in a [id number] orientation, and advanced toward the femoral nerve. Advancement was performed carefully under direct ultrasound visualization. After negative aspiration, 20cc of 0.25% bupivacaine with [id number] epinephrine was injected in 5cc aliquots. Under ultrasound guidance the local anesthetics were observed spreading around the femoral nerve. The needle was removed intact and sterile dressing was applied. The patient had stable vital signs, was conscious and in no apparent distress. The patient tolerated the femoral nerve block well with stable vital signs and was prepared for subsequent surgery
--- NOTE | 2018-01-17 14:45 | PCM.SURG1 ---
Surgeon's Initial Post Op Note - Surgeon's Notes Surgeon: Dr. Mayuri Oswald DPM Tractor Operator Battery: Dr. Daniella Stockton PGY-3; Dr. Dahiana Gonzalez PGY-3; Dr. Carey Fuller PGY- 2 Type of Anesthesia: General LMA, Block Regional Anesthesia Administered By: Dr. Stu SHAH Pre-Operative Diagnosis: Right ankle Tri-malleolar fracture Operative Findings: See dictation. M: 03/09 tubular locking plate; 3.5 x 14 mm non-locking screw (x2); 3.5 x 16 non-locking screw (x2); 4.0 x 14, 16 mm non- locking cancellous screws; 4.0 50 mm Cancellous screws X 2; 3.5 x 26 mm Cancellous screw; 3.5 x 18 mm cortical screw (Lag), Arthrex tight rope, 2-0, 3- 0, 4-0 vicryl, 4-0 nylon. I: none Post-Operative Diagnosis: Same Operation Performed: Right ankle open reduction and internal fixation Specimen/Specimens Removed: none Estimated Blood Loss: EBL {In ML}: 100 Blood Products Given: N/A Drains Used: No Drains Post-Op Condition: Good Date of Surgery/Procedure: 01/17/18 Time of Surgery/Procedure: 14:46
--- NOTE | 2018-01-17 14:45 | PCM.ANESB2 ---
Popliteal Nerve Block - Popliteal Nerve Block Date of Procedure: 01/17/18 Anesthesiologist: Jose Peraza Pre-Procedure Diagnosis: R ankle fracture Post-Procedure Diagnosis: R ankle fracture Procedure Performed: Popliteal Nerve Block Right - Procedure Popliteal Nerve Block: This procedure was explained to the patient that it is for post-operative pain management. Consent was obtained after a thorough discussion with the patient regarding the benefits and possible complications of local anesthetic block of the sciatic nerve at the popliteal level. The patient was brought to the operating room and standard monitors are applied. Time-out was held with the circulating nurse to confirm the correct surgery and the appropriate block. After applying oxygen by nasal cannula and administering IV Sedation, patient's operative leg was gently raised and supported and the groove in between the biceps femoris and vastus lateralis muscles was carefully palpated. The skin approximately 8cm above the popliteal crease was then marked. The ultrasound transducer was then applied to the posterior thigh approximately 8cm above the popliteal crease in the transverse plane and the sciatic nerve before its division was visualized lateral to the popliteal artery and in between the bicep femoris and semimembranosus/semitendinosus muscles. After identification, the lateral portion of the thigh was prepped with Chloroprep and Lidocaine 1% was injected subcutaneously for topical anesthesia. At this point, a # 21 gauge Stimuplex insulated 4 inch needle was inserted into pre-marked area and advanced in a perpendicular direction. The needle was inserted above the ultrasound transducer in-plane towards the sciatic nerve in a [id number] direction. Needle advancement was performed carefully under direct ultrasound visualization. After repeated negative aspiration, 30 cc of 0.25 % bupivacaine with [id number] epinephrine was injected in 5cc aliquots. Under ultrasound guidance the local anesthetics were observed surrounding sciatic nerve . The needle was removed intact and sterile dressing was applied. The patient tolerated the popliteal nerve block well with stable vital signs and was subsequently prepared for the surgery.
[2018-01-17] MEDS ORDERED: Oxycodone/Acetaminophen 5/325 mg Tab PO PRN (14:47)
--- NOTE | 2018-01-17 15:30 | RAD ---
Date of service: 01/17/2018 PROCEDURE: Fluoroscopic assistance in excess of 1 hour. HISTORY: ORIF RIGHT ANKLE COMPARISON: None TECHNIQUE: Standard protocol for this study/examination. FINDINGS: Total fluoroscopic time (continuous mode) utilized during the procedure 233.9 seconds. Total exam DLP: 7.64 (mGy). IMPRESSION: Submitted images from the current procedure: 11.0
--- NOTE | 2018-01-17 15:48 | RAD ---
Date of service: 01/17/2018 PROCEDURE: Right Ankle Radiographs. HISTORY: s/p right ankle surgery COMPARISON: Preoperative study 01/14/2018 FINDINGS: BONES: No evidence of orthopedic hardware failure. Major fracture fragments are anatomically aligned. JOINTS: Normal. No osteoarthritis. Ankle mortise maintained. Talar dome intact SOFT TISSUES: Residual soft tissue swelling. OTHER FINDINGS: None. IMPRESSION: Satisfactory postoperative status.
[2018-01-17] MEDS: Lactated Ringer's 1,000 ML IV SCH ×2 (16:14→21:16)
[2018-01-18] MEDS: Lactated Ringer's 1,000 ML IV SCH ×2 (00:51→10:54)
[2018-01-18] MEDS: Oxycodone/Acetaminophen 5/325 mg Tab PO PRN ×3 (06:15→21:43)
[2018-01-18] MEDS ORDERED: Povidone Iodine Topical 10% Sol ONE (08:46)
[2018-01-18 11:02] LABS: MEAN CELL VOLUME 72.1 fl (81.0-99.0); MEAN CORPUSCULAR HEMOGLOBIN 21.7 pg (27.0-31.0); MEAN CORPUSCULAR HGB CONC 30.1 g/dL (33.0-37.0); RBC 4.59 Mil/uL (3.80-5.20); RED CELL DISTRIBUTION WIDTH 21.7 % (11.5-14.5); WHITE BLOOD COUNT 19.2 K/uL (4.8-10.8)
[2018-01-18 11:20] LABS: BLOOD UREA NITROGEN 25 mg/dl (7-17); CALCIUM 9.1 mg/dL (8.4-10.2); GFR NON-AFRICAN AMERICAN > 60
--- NOTE | 2018-01-18 13:10 | CP.PCM.PN ---
Subjective - Date & Time of Evaluation Date of Evaluation: 01/18/18 Time of Evaluation: 13:00 - Subjective Subjective: F/U Fx R ankle. Minimal Post surgical pain, denies cough, SOB, C/P, dysuria, Flank pain Objective - Vital Signs/Intake and Output Vital Signs (last 24 hours): Temp Pulse Resp BP Pulse Ox 97.6 F 84 20 135/71 95 01/18/18 08:43 01/18/18 08:43 01/18/18 08:43 01/18/18 08:43 01/18/18 08:43 - Medications Medications: Current Medications Acetaminophen (Tylenol 325mg Tab) 650 mg PO Q6 PRN PRN Reason: Pain, Mild (1-3) Last Admin: 01/16/18 00:03 Dose: 650 mg Amlodipine Besylate (Norvasc) 5 mg PO DAILY [facility] Last Admin: 01/18/18 08:27 Dose: 5 mg Atorvastatin Calcium (Lipitor) 10 mg PO HS [facility] Last Admin: 01/17/18 22:00 Dose: 10 mg Enoxaparin Sodium (Lovenox) 40 mg SC DAILY [facility]; Protocol Last Admin: 01/16/18 10:01 Dose: 40 mg Hydrochlorothiazide (Microzide) 12.5 mg PO DAILY [facility] Last Admin: 01/18/18 08:28 Dose: 12.5 mg Lactated Ringer's (Lactated Ringer's) 1,000 mls @ 100 mls/hr IV .Q10H [facility] Last Admin: 01/18/18 10:54 Dose: Not Given Piperacillin Sod/Tazobactam (Sod 3.375 gm/ Sodium Chloride) 100 mls @ 100 mls/hr IVPB Q8 [facility]; Protocol Meclizine HCl (Antivert) 12.5 mg PO DAILY PRN PRN Reason: Dizziness Morphine Sulfate (Morphine) 3 mg IVP Q3 PRN PRN Reason: Pain, moderate (4-7) Last Admin: 01/16/18 22:06 Dose: 3 mg Oxycodone/Acetaminophen (Percocet 5/325 Mg Tab) 1 tab PO Q4 PRN PRN Reason: Pain, moderate (4-7) Stop: 01/20/18 14:48 Last Admin: 01/18/18 06:15 Dose: 1 tab Oxycodone/Acetaminophen (Percocet 5/325 Mg Tab) 2 tab PO Q4 PRN PRN Reason: Pain, severe (8-10) Stop: 01/20/18 14:48 - Labs Labs: 01/18/18 10:34 01/18/18 10:34 PT 10.7 Seconds (9.8-13.1) 01/14/18 18:15 INR 0.9 01/14/18 18:15 APTT 26.3 Seconds (25.6-37.1) 01/14/18 18:15 - Constitutional Appears: No Acute Distress - Head Exam Head Exam: NORMAL INSPECTION - Eye Exam Eye Exam: PERRL - ENT Exam ENT Exam: Normal Exam - Neck Exam Neck Exam: Normal Inspection - Respiratory Exam Respiratory Exam: Clear to Ausculation Bilateral - Cardiovascular Exam Cardiovascular Exam: REGULAR RHYTHM - GI/Abdominal Exam GI & Abdominal Exam: Soft, Normal Bowel Sounds - Extremities Exam Additional comments: R foot splint and dada wrap in place. - Back Exam Back Exam: NORMAL INSPECTION - Neurological Exam Neurological Exam: Alert, Oriented x3. absent: Motor Sensory Deficit - Psychiatric Exam Psychiatric exam: Normal Mood - Skin Skin Exam: Warm Assessment and Plan (1) Status post ORIF of fracture of ankle Status: Acute (2) HTN (hypertension) Status: Chronic (3) Hypercholesterolemia Status: Chronic (4) Leukocytosis Status: Acute - Assessment and Plan (Free Text) Plan: F/U U/A, U C-S, CXR, CBC, Blood C-S, WBC increased to 20.4, start Vanco, Zosyn and rest of Tx.
[2018-01-18 13:37] LABS: HEMOGLOBIN 9.9 g/dL (12.0-16.0); MEAN CELL VOLUME 70.4 fl (81.0-99.0); MEAN CORPUSCULAR HEMOGLOBIN 21.7 pg (27.0-31.0); MEAN CORPUSCULAR HGB CONC 30.8 g/dL (33.0-37.0); RBC 4.59 Mil/uL (3.80-5.20); WHITE BLOOD COUNT 20.4 K/uL (4.8-10.8)
[2018-01-18] MEDS: Piperacillin/Tazobact 3.375 GM in Sodium Chloride 0.9% 100 ML IVPB SCH ×2 (15:05→16:40)
--- NOTE | 2018-01-18 15:53 | RAD ---
Date of service: 01/18/2018 HISTORY: Leukocytosis COMPARISON: 01/14/2018 FINDINGS: LUNGS: The lungs are well inflated and clear. PLEURA: No pleural effusions or pneumothorax. CARDIOVASCULAR: The heart is normal in size. Atherosclerotic aortic arch calcifications are present. OSSEOUS STRUCTURES: Within normal limits for the patient's age. VISUALIZED UPPER ABDOMEN: Normal. OTHER FINDINGS: There is chronic elevation of the right hemidiaphragm. IMPRESSION: No active pulmonary disease.
--- NOTE | 2018-01-18 16:56 | CP.PCM.PN ---
Subjective - Date & Time of Evaluation Date of Evaluation: 01/18/18 Time of Evaluation: 16:52 - Subjective Subjective: Podiatry Progress Note: Dr. Oswald 77F patient, seen and evaluated at bedside for 1 day s/p ankle ORIF right. Patient is resting comfortably in bed and in NAD. She denies any numbness to her RLE. She notes that her pain is well controlled today. States she has been resting, icing and elevating right lower extremity. Denies N/V/F/SOB/CP. Objective - Vital Signs/Intake and Output Vital Signs (last 24 hours): Temp Pulse Resp BP Pulse Ox 98.1 F 86 18 147/83 97 01/18/18 16:33 01/18/18 16:33 01/18/18 16:33 01/18/18 16:33 01/18/18 16:33 - Medications Medications: Current Medications Acetaminophen (Tylenol 325mg Tab) 650 mg PO Q6 PRN PRN Reason: Pain, Mild (1-3) Last Admin: 01/16/18 00:03 Dose: 650 mg Amlodipine Besylate (Norvasc) 5 mg PO DAILY [facility] Last Admin: 01/18/18 08:27 Dose: 5 mg Atorvastatin Calcium (Lipitor) 10 mg PO HS [facility] Last Admin: 01/17/18 22:00 Dose: 10 mg Enoxaparin Sodium (Lovenox) 40 mg SC DAILY [facility]; Protocol Last Admin: 01/16/18 10:01 Dose: 40 mg Hydrochlorothiazide (Microzide) 12.5 mg PO DAILY [facility] Last Admin: 01/18/18 08:28 Dose: 12.5 mg Piperacillin Sod/Tazobactam (Sod 3.375 gm/ Sodium Chloride) 100 mls @ 100 mls/hr IVPB Q8 [facility]; Protocol Last Admin: 01/18/18 16:40 Dose: Not Given Vancomycin HCl 1 gm/ Sodium (Chloride) 250 mls @ 166.667 mls/hr IVPB Q12H [facility]; Protocol Last Admin: 01/18/18 16:38 Dose: 166.667 mls/hr Meclizine HCl (Antivert) 12.5 mg PO DAILY PRN PRN Reason: Dizziness Morphine Sulfate (Morphine) 3 mg IVP Q3 PRN PRN Reason: Pain, moderate (4-7) Last Admin: 01/16/18 22:06 Dose: 3 mg Oxycodone/Acetaminophen (Percocet 5/325 Mg Tab) 1 tab PO Q4 PRN PRN Reason: Pain, moderate (4-7) Stop: 01/20/18 14:48 Last Admin: 01/18/18 13:27 Dose: 1 tab Oxycodone/Acetaminophen (Percocet 5/325 Mg Tab) 2 tab PO Q4 PRN PRN Reason: Pain, severe (8-10) Stop: 01/20/18 14:48 - Labs Labs: 01/18/18 12:43 01/18/18 10:34 PT 10.7 Seconds (9.8-13.1) 01/14/18 18:15 INR 0.9 01/14/18 18:15 APTT 26.3 Seconds (25.6-37.1) 01/14/18 18:15 - Constitutional Appears: Well, Non-toxic - Head Exam Head Exam: ATRAUMATIC - Extremities Exam Additional comments: Right lower extremity exam: Vascular: Dp 2/4, CFT <3 secs x5, TG warm to warm, edema/erythema noted perimalleolar and pretibial distal 1/3rd of the leg derm: no open lesions, 3 surgical sites noted, medial aspect of the ankle joint, lateral aspect of the ankle joint and posterior aspect of the ankle joint, surgical site well coapted, no drainage noted, no malodor, sutures intact, ecchymosis noted in the distal 1/3rd of the leg, erythema and edema noted distal 1/3rd of the leg. neuro: protective sensation intact via ipswich 4/4 ortho: minimal pain on palpation to the ankle joint, limited ROM of the ankle joint secondary to guarding and edema - Neurological Exam Neurological Exam: Alert, Awake, Oriented x3 Assessment and Plan - Assessment and Plan (Free Text) Assessment: 77 yo female 1 day s/p right ankle ORIF Plan: Patient seen and evaluated chart, labs and vitals reviewed; WBC 20.3 afebrile continue IV antibiotics-zosyn and vanc dressing clean, dry and intact. Right ankle dressed with betadine soaked adaptic, DSD CORKY, webril, AO splint and CORKY Patient to remain in house until leukocytosis under control to remain nonweightbearing to the right lower extremity PT consult ordered Podiatry to continue following the patient while in house
--- NOTE | 2018-01-18 19:29 | OP ---
PROCEDURE DATE: 01/17/2018 PREOPERATIVE DIAGNOSIS: Right displaced ankle trimalleolar fracture. POSTOPERATIVE DIAGNOSIS: Right displaced ankle trimalleolar fracture. PROCEDURE: Right ankle open reduction with internal fixation. SURGEON: Mayuri Oswald DPM DATA INTEGRATION DEVELOPER: Dr. Stockton, PGY-3, Dr. Gonzalez, PGY-3, Dr. Fuller, PGY-2. LOCATION ANALYST: Dr. Hossein Peraza. ANESTHESIA: General. INDICATIONS: The patient is a 77-year-old female with the above-mentioned diagnosis. The patient has exhausted all conservative treatments at this time and now requires surgical intervention. The patient signed the consent after careful explanation of risks, benefits, complications and alternatives for surgical procedure. No guarantees were given nor implied. PREPARATION: The patient was brought into the operating room and placed on the operating room table in a supine position. Time-out was performed for identification of the correct patient and procedure. After induction of general anesthesia, a thigh tourniquet was placed to the patient's right thigh. The right foot and ankle was then prepped and draped in normal sterile manner and the thigh tourniquet was inflated to 350 mmHg and the procedure began. DESCRIPTION OF PROCEDURE: Attention was directed to the lateral aspect of the right ankle where a fracture was present. At this time via the use of a #15 blade, an approximately 7 cm in length linear incision was created over the lateral aspect of the fibula of the right lower extremity. The incision was carried down from proximal to distal to the level of the malleolus. Upon completion of the incision, all neurovascular structures encountered were retracted, ligated, and bovied as necessary. At this time via a the use of a __freer___ elevator and a #15 blade, the periosteum was dissected free of its osseous attachments and there was noted to be a spiral oblique fibular fracture present at the level of the ankle joint. Upon dissection of the surrounding soft tissue from the fracture site, the fracture fragment was distracted distally and reduced to the bone clamp. The surgical site was then copiously irrigated with thorough normal saline. At this time via the use of the bone clamp and distal and proximal distraction, the fracture was then placed in a more anatomical corrected position with noted increase into the fibula and buddhist of the ankle mortise upon performing this procedure. Upon establishment of correct label of fibular fracture, the fracture was clamped with a __bone___ clamp. At this time, a lag screw was placed across the fracture site in order to allow for interfragmentary screw fixation. Using standard AO principles and technique, a 3.5 x 80 mm Synthes screw was placed across the fracture site. Upon completion of this procedure, the bone clamp was then removed. It was noted that good fixation had been achieved across the fracture site. At this time a Synthes one-third fibular plate was utilized at the lateral aspect of the fibula, which was fixated with the use of Synthes 3.5 mm nonlocking screw and 4.0 cancellous nonlocking screws. Six screws were utilized at this time and upon completion of the fibular reduction and fixation, the surgical site was copiously irrigated with sterile normal saline. At this time, attention was directed to the level of the medial aspect of the right ankle of the level of the medial malleolus where a displaced distal malleolar fracture was present. At this time, via the use of a #15 blade, a linear incision was created from superior to inferior approximately 5 cm in length. Incision was directed from dermal layer to the underlying periosteum and upon completion of the skin and subcutaneous incision, a #15 blade was utilized to free the underlying osseous fracture site. At this time, it was noted that the medial malleolus was substantially fractured and displaced. At this time via the use of a freer elevator, the coagulated blood and fibrosis was removed from the fracture site and the right ankle was then copiously irrigated with sterile normal saline. At this time, the medial malleolus was placed in a more anatomically reduced position and temporarily fixated via the use of the 4.0 cannulated Synthes screw guide. Two parallel guides were placed on distal medial to proximal lateral. Under C-arm guidance, a C-arm was utilized at the time since her adequate position of the fibular plate and positioning of the medial malleolar guidewires. It was noted that adequate anatomical buddhist have been achieved and good position was present of the guidewires. At this time via the use of AO technique two 4.0 mm Synthes nonlocking partially threaded screws measuring 50 mm in length were inserted into the medial malleolar fracture site. Upon removal of the guidewire, it was noted that good fixation had been achieved. The surgical site was then copiously irrigated with sterile normal saline. Next, attention was directed to the posterior aspect of the right ankle where posterior malleolar fracture was present at the posterolateral aspect of the articulating surface. Under C-arm guidance, a temporary K wire was used to fixate the fracture fragment from posterolateral to anteromedial. Next, a 1 cm incision was made using a #15 blade posterolaterally at the ankle joint and carried down to the subcutaneous tissue with care being taken to identify and retract all vital neurovascular structures. At this time, a 3.5 mm partially threaded cancellous screw measuring 26 mm in length was placed across the fracture site using a standard AO principles and techniques and subsequently the temporary fixation was then removed. Incision site was then copiously irrigated with sterile normal saline. Under C-arm guidance, it was noted that good reduction had been achieved. Next, utilizing intraoperative fluoroscopy, a guidewire from the Arthrex tightrope system was passed through the lateral aspect of the fibula through the one third tubular plate and across the entirety of the fibula and through the medial and lateral cortices of the tibia and exiting the medial aspect of the patient's right ankle. Proper positioning of the guidewire was verified utilizing intraoperative fluoroscopy. Next, the cannulated drill bit from the Arthrex tightrope system was placed over the guidewire and the medial and lateral cortices of the fibula were drilled. The drill bit and the guidewire were then removed from the surgical field. Next, the needle from the tightrope system was passed through the lateral and medial cortices of the fibular and into the lateral and medial cortices of the tibia exiting out the medial aspect of the patient's right ankle. The needle was then cut and freed from the suture and the medial and lateral parts of the Arthrex tightrope were then manipulated utilizing the sutures to be pushed against the medial aspect of the tibial cortex and the lateral aspect of the fibula. Proper positioning of the button was verified utilizing intraoperative fluoroscopy and the remaining suture wire was then cut and removed from the surgical field. The incision site were then copiously irrigated with sterile normal saline. The lateral and the medial incisions, the subcutaneous tissues were reapproximated with 2-0, 3-0, and 4-0 Vicryl and the skin was reapproximated with 4-0 nylon. The posterior incision site was then reapproximated with 4-0 nylon. Dressings to the right lower extremity included Betadine-soaked Adaptic, 4x4, gauze, Chun, George and AO posterior splint with Webril and George bandage. POSTOPERATIVE CONDITION: The patient tolerated the anesthesia and the procedure well and was escorted to the recovery room with vital signs stable and neurovascular status intact to the right lower extremity. The patient will follow up with Dr. Oswald in her office on an outpatient basis. Daniella Stockton DPM Mayuri Oswald DPM [id number]
[2018-01-19] MEDS: Piperacillin/Tazobact 3.375 GM in Sodium Chloride 0.9% 100 ML IVPB SCH ×2 (01:03→08:31)
[2018-01-19 06:56] LABS: HEMOGLOBIN 8.4 g/dL (12.0-16.0); MEAN CELL VOLUME 71.2 fl (81.0-99.0); MEAN CORPUSCULAR HEMOGLOBIN 22.4 pg (27.0-31.0); MEAN CORPUSCULAR HGB CONC 31.5 g/dL (33.0-37.0); RBC 3.76 Mil/uL (3.80-5.20); RED CELL DISTRIBUTION WIDTH 21.2 % (11.5-14.5)
[2018-01-19 07:07] LABS: ALB/GLOB RATIO 1.2 (1.0-2.1); ALBUMIN 3.2 g/dL (3.5-5.0); ALT/SGPT 34 U/L (9-52); AST/SGOT 32 U/L (14-36); BLOOD UREA NITROGEN 29 mg/dl (7-17); CALCIUM 8.5 mg/dL (8.4-10.2); GFR NON-AFRICAN AMERICAN > 60
[2018-01-19 08:41] VITALS: BP 156/73; PULSE 82; RESP 20; TEMP 97.7
[2018-01-19] MEDS: Oxycodone/Acetaminophen 5/325 mg Tab PO PRN (11:12)
--- NOTE | 2018-01-19 14:12 | CP.PCM.DIS ---
Provider - Provider Date of Admission: 01/16/18 12:57 Attending physician: Sherwin Carmen MD Diagnosis - Discharge Diagnosis (1) Status post ORIF of fracture of ankle Status: Acute (2) HTN (hypertension) Status: Chronic Priority: Medium (3) Hypercholesterolemia Status: Chronic Priority: Medium (4) Leukocytosis Status: Acute Hospital Course - Lab Results Lab Results: Micro Results 01/16/18 20:12 Blood Blood Culture - Preliminary NO GROWTH AFTER 48 HOURS 01/16/18 20:02 Blood Blood Culture - Preliminary NO GROWTH AFTER 48 HOURS 01/16/18 21:02 Urine,Clean Catch Urine Culture - Final 50-100,000 CFU/ML. MULTIPLE SPECIES. SUGGEST REPEAT SPECIMEN. Most Recent Lab Values WBC 12.0 K/uL (4.8-10.8) H 01/19/18 05:40 RBC 3.76 Mil/uL (3.80-5.20) L 01/19/18 05:40 Hgb 8.4 g/dL (12.0-16.0) L 01/19/18 05:40 Hct 26.8 % (34.0-47.0) L 01/19/18 05:40 MCV 71.2 fl (81.0-99.0) L 01/19/18 05:40 MCH 22.4 pg (27.0-31.0) L 01/19/18 05:40 MCHC 31.5 g/dL (33.0-37.0) L 01/19/18 05:40 RDW 21.2 % (11.5-14.5) H 01/19/18 05:40 Plt Count 179 K/uL (130-400) 01/19/18 05:40 MPV 9.2 fl (7.2-11.7) 01/15/18 10:00 Neut % (Auto) 77.0 % (50.0-75.0) H 01/15/18 10:00 Lymph % (Auto) 13.3 % (20.0-40.0) L 01/15/18 10:00 Vilas % (Auto) 8.2 % (0.0-10.0) 01/15/18 10:00 Eos % (Auto) 1.1 % (0.0-4.0) 01/15/18 10:00 Baso % (Auto) 0.4 % (0.0-2.0) 01/15/18 10:00 Neut # (Auto) 5.6 K/uL (1.8-7.0) 01/15/18 10:00 Lymph # (Auto) 1.0 K/uL (1.0-4.3) 01/15/18 10:00 Vilas # (Auto) 0.6 K/uL (0.0-0.8) 01/15/18 10:00 Eos # (Auto) 0.1 K/uL (0.0-0.7) 01/15/18 10:00 Baso # (Auto) 0.0 K/uL (0.0-0.2) 01/15/18 10:00 PT 10.7 Seconds (9.8-13.1) 01/14/18 18:15 INR 0.9 01/14/18 18:15 APTT 26.3 Seconds (25.6-37.1) 01/14/18 18:15 Sodium 134 mmol/l (132-148) 01/19/18 05:40 Potassium 4.1 MMOL/L (3.6-5.0) 01/19/18 05:40 Chloride 101 mmol/L (98-107) 01/19/18 05:40 Carbon Dioxide 27 mmol/L (22-30) 01/19/18 05:40 Anion Gap 10 (10-20) 01/19/18 05:40 BUN 29 mg/dl (7-17) H 01/19/18 05:40 Creatinine 0.7 mg/dl (0.7-1.2) 01/19/18 05:40 Est GFR ( Amer) > 60 01/19/18 05:40 Est GFR (Non-Af Amer) > 60 01/19/18 05:40 Random Glucose 123 mg/dL (65-105) H 01/19/18 05:40 Calcium 8.5 mg/dL (8.4-10.2) 01/19/18 05:40 Total Bilirubin 0.6 mg/dl (0.2-1.3) 01/19/18 05:40 AST 32 U/L (14-36) 01/19/18 05:40 ALT 34 U/L (9-52) 01/19/18 05:40 Alkaline Phosphatase 58 U/L (38-126) 01/19/18 05:40 Total Protein 6.0 G/DL (6.3-8.2) L 01/19/18 05:40 Albumin 3.2 g/dL (3.5-5.0) L D 01/19/18 05:40 Globulin 2.8 gm/dL (2.2-3.9) 01/19/18 05:40 Albumin/Globulin Ratio 1.2 (1.0-2.1) 01/19/18 05:40 Triglycerides 36 mg/DL (0-149) 01/15/18 13:00 Cholesterol 172 mg/dL (0-199) 01/15/18 13:00 LDL Cholesterol Direct 87 mg/dL (0-129) 01/15/18 13:00 HDL Cholesterol 90 MG/DL (30-70) H 01/15/18 13:00 Thyroxine (T4) 10.3 ug/dl (5.5-11.0) 01/15/18 13:00 TSH 3rd Generation 1.15 mIU/ML (0.46-4.68) 01/15/18 13:00 Urine Color Yellow (YELLOW) 01/16/18 21:02 Urine Clarity Clear (Clear) 01/16/18 21:02 Urine pH 7.0 (5.0-8.0) 01/16/18 21:02 Ur Specific Sedan 1.018 (1.003-1.030) 01/16/18 21:02 Urine Protein Negative mg/dL (NEGATIVE) 01/16/18 21: Urine Glucose (UA) Neg mg/dL (Normal) 01/16/18 21: Urine Ketones Negative mg/dL (NEGATIVE) 01/16/18 21: Urine Blood Small (NEGATIVE) 01/16/18 21: Urine Nitrate Negative (NEGATIVE) 01/16/18 21: Urine Bilirubin Negative (NEGATIVE) 01/16/18 21: Urine Urobilinogen 0.2-1.0 mg/dL (0.2-1.0) 01/16/18 21:02 Ur Leukocyte Esterase Neg Bettie/uL (Negative) 01/16/18 21:02 Urine RBC (Auto) 4 /hpf (0-3) H 01/16/18 21:02 Urine Microscopic WBC 1 /hpf (0-5) 01/16/18 21:02 Ur Squamous Epith Cells < 1 /hpf (0-5) 01/16/18 21:02 Blood Type O POSITIVE 01/14/18 18:15 Blood Type Confirm O POSITIVE 01/14/18 18:15 Antibody Screen Negative 01/14/18 18:15 BBK History Checked No verified bt 01/14/18 18:15 Discharge Exam - Head Exam Head Exam: NORMAL INSPECTION Discharge Plan - Discharge Medications Prescriptions: Ibuprofen [Motrin Tab] 600 mg PO Q8 PRN #30 tab PRN Reason: Pain, Moderate (4-7) Acetaminophen with Codeine [Tylenol with Codeine No. 3 300 mg-30 mg] 1 tab PO Q4H PRN #15 tab PRN Reason: Pain Vancomycin 1gm in NS 250ml [Vancomycin 1gm] 1 gm IVPB Q12 #10 bag Piperacill/Tazo 3.375gm in Dex [Zosyn 3.375 Gm IV] 3.375 gm IVPB Q8 #15 bag - Follow Up Plan Condition: FAIR Disposition: REHAB FACILITY/REHAB UNIT Instructions: Cast Care, How to Use Crutches, Ankle Dislocation (DC), Ankle Fracture (DC), Weakness (ED) Referrals: [facility] [Outside] (FOLLOW UP AT [facility] ON TUESDAY (DR OSWALD). YOU NEED TO CALL TUESDAY MORNING FOR EXACT TIME.) Mayuri Oswald DPM [Staff Provider] -
[2018-01-19 15:17] VITALS: O2SAT 100
--- NOTE | 2018-01-19 15:47 | CP.PCM.PN ---
Subjective - Date & Time of Evaluation Date of Evaluation: 01/19/18 Time of Evaluation: 15:44 - Subjective Subjective: Podiatry Progress Note: Dr. Oswald 77F patient, seen and evaluated at bedside for 2 day s/p ankle ORIF right. Patient is resting comfortably in bed and in NAD. She denies any numbness to her RLE. She notes that her pain is well controlled today. States she has been resting, icing and elevating right lower extremity. Denies N/V/F/SOB/CP Objective - Vital Signs/Intake and Output Vital Signs (last 24 hours): Temp Pulse Resp BP Pulse Ox 97.7 F 82 20 156/73 H 100 01/19/18 08:40 01/19/18 08:40 01/19/18 08:40 01/19/18 08:40 01/19/18 15:19 - Labs Labs: 01/19/18 05:40 01/19/18 05:40 PT 10.7 Seconds (9.8-13.1) 01/14/18 18:15 INR 0.9 01/14/18 18:15 APTT 26.3 Seconds (25.6-37.1) 01/14/18 18:15 - Constitutional Appears: Well, Non-toxic - Head Exam Head Exam: ATRAUMATIC - Extremities Exam Additional comments: Dressing clean, dry and intact. - Neurological Exam Neurological Exam: Alert, Awake Assessment and Plan - Assessment and Plan (Free Text) Assessment: 77 yo female 2 day s/p right ankle ORIF Plan: Patient seen and evaluated chart, labs and vitals reviewed; WBC 12.2 afebrile dressing clean, dry and intact. Right ankle dressed with betadine soaked adaptic, DSD CORKY, webril, AO splint and CORKY Pt to remain nonweightbearing to the right lower extremity Patient stable for discharge to [facility] Patient will follow up with Dr Oswald within a week of discharge in the [facility] office Patient to take augmentin 875 mg bid x 10 days Patient to take pain medications prn for pain
== END 2018-01-19 13:01 | DRG 494 ==
LOC: H.ER 17:41 → H.ERHOLD 22:53 → H.MEDSURG1 01-15 00:10 → OBSVTOIN 01-16 12:57
PROVIDERS: ADMIT Internal Medicine Pulmonary Disease; ATTEND Internal Medicine Pulmonary Disease
PROC: 0QSJXZZ Reposition Right Fibula, External Approach (ICD-10-PCS; 2018-01-16)
PROC: 0QSGXZZ Reposition Right Tibia, External Approach (ICD-10-PCS; 2018-01-16)
PROC: 3E0T3BZ Introduction of Anesthetic Agent into Peripheral Nerves and Plexi, Percutaneous Approach (ICD-10-PCS; 2018-01-17)
PROC: 3E0T3BZ Introduction of Anesthetic Agent into Peripheral Nerves and Plexi, Percutaneous Approach (ICD-10-PCS; 2018-01-17)
PROC: 0QSJ04Z Reposition Right Fibula with Internal Fixation Device, Open Approach (ICD-10-PCS; principal; 2018-01-17 10:15)
PROC: 0QSG04Z Reposition Right Tibia with Internal Fixation Device, Open Approach (ICD-10-PCS; 2018-01-17 10:15)
DX: S82.851A Displaced trimalleolar fracture of right lower leg, initial encounter for closed fracture (principal); I10 Essential (primary) hypertension; E78.00 Pure hypercholesterolemia, unspecified; E78.5 Hyperlipidemia, unspecified; D72.829 Elevated white blood cell count, unspecified; Y93.01 Activity, walking, marching and hiking; R40.2362 Coma scale, best motor response, obeys commands, at arrival to emergency department; R40.2142 Coma scale, eyes open, spontaneous, at arrival to emergency department; R40.2252 Coma scale, best verbal response, oriented, at arrival to emergency department; W10.9XXA Fall (on) (from) unspecified stairs and steps, initial encounter; Y92.009 Unspecified place in unspecified non-institutional (private) residence as the place of occurrence of the external cause

== ENCOUNTER 2018-05-04 10:38 | Emergency (ER) | payer MEDICARE ==
[2018-05-04 10:38] VITALS: BMI 27.3
[2018-05-04 10:45] VITALS: RESP 18; TEMP 98.5; O2SAT 99
--- NOTE | 2018-05-04 12:43 | ED PDOC ---
HPI: Abdomen Time Seen by Provider: 05/04/18 11:08 Chief Complaint (Nursing): Abdominal Pain Chief Complaint (Provider): Abdominal pain History Per: Patient History/Exam Limitations: no limitations Onset/Duration Of Symptoms: Hrs Outside of [place] travel?: No Current Symptoms Are (Timing): Still Present Location Of Pain/Discomfort: Suprapubic Additional History Per: Patient Additional Complaint(s): 78yo female, with history of HTN, HCH, comes to ER for evaluation of lower abdominal pain, present since this morning. She denies any associated nausea, vomiting, diarrhea, fever or chills. Patient denies any hematuria, dysuria or back pain. No additional medical complaints. PMD: Dr. Carmen Past Medical History Reviewed: Historical Data, Nursing Documentation, Vital Signs Vital Signs: Last Vital Signs Temp 98.5 F 05/04/18 10:44 Pulse 86 05/04/18 10:44 Resp 18 05/04/18 10:44 BP 159/82 H 05/04/18 10:44 Pulse Ox 99 05/04/18 10:44 - Medical History PMH: HTN, Hypercholesterolemia Denies: Chronic Kidney Disease - Surgical History Surgical History: No Surg Hx - Family History Family History: States: No Known Family Hx - Home Medications Home Medications: Ambulatory Orders Medication Instructions Recorded Atorvastatin [Lipitor] 10 mg PO HS 08/23/16 Meclizine HCl 12.5 mg PO DAILY PRN 08/23/16 amLODIPine [Norvasc] 5 mg PO DAILY 08/23/16 Hydrochlorothiazide [Microzide] 12.5 mg PO DAILY 01/14/18 Ibuprofen [Motrin Tab] 600 mg PO Q8 PRN #30 tab 01/14/18 Dicyclomine [Dicyclomine HCl] 10 mg PO Q8 #10 cap 05/04/18 Doxycycline Hyclate 100 mg PO BID #20 capsule 05/04/18 - Allergies Allergies/Adverse Reactions: Allergies Allergy/AdvReac Type Severity Reaction Status Date / Time No Known Allergies Allergy Verified 05/04/18 11:14 Review of Systems ROS Statement: Except As Marked, All Systems Reviewed And Found Negative Constitutional: Negative for: Fever, Chills Cardiovascular: Negative for: Chest Pain Respiratory: Negative for: Shortness of Breath Gastrointestinal: Positive for: Abdominal Pain. Negative for: Nausea, Vomiting, Diarrhea Genitourinary Female: Negative for: Dysuria, Hematuria Physical Exam - Reviewed Nursing Documentation Reviewed: Yes Vital Signs Reviewed: Yes - Physical Exam Appears: Positive for: Non-toxic, No Acute Distress Head Exam: Positive for: ATRAUMATIC, NORMAL INSPECTION, NORMOCEPHALIC Skin: Positive for: Normal Color, Warm, Dry Eye Exam: Positive for: EOMI, PERRL ENT: Negative for: Pharyngeal Erythema, Tonsillar Exudate Neck: Positive for: Normal, Painless ROM, Supple Cardiovascular/Chest: Positive for: Regular Rate, Rhythm. Negative for: Murmur, Tachycardia Respiratory: Positive for: Normal Breath Sounds. Negative for: Respiratory Distress Gastrointestinal/Abdominal: Positive for: Soft, Tenderness (mild suprapubic tenderness). Negative for: Mass, Distended, Guarding, Rebound Back: Positive for: Normal Inspection. Negative for: L CVA Tenderness, R CVA Tenderness Extremity: Positive for: Normal ROM Neurologic/Psych: Positive for: Alert, Oriented. Negative for: Motor/Sensory Deficits - Laboratory Results Result Diagrams: 05/04/18 12:15 05/04/18 12:15 - ECG O2 Sat by Pulse Oximetry: 99 (RA) Pulse Ox Interpretation: Normal Medical Decision Making Medical Decision Making: Lower abdominal pain Plan: -- Labs -- Urinalysis -- CT Abdomen/Pelvis w/ IV contrast -- Toradol 30mg IV -- IV Fluids [address] results discussed with Dr. Carmen, including plan for discharge home with PO antibiotics, and he is agreeable.Plan for discharge discussed with patient, who is agreeable. Instructed to take medications as prescribed, and to follow up with Dr. Carmen. Scribe Attestation: Documented by Anahy Antonio acting as a scribe for Elijah Martino MD Provider Attestation: All medical record entries made by the Scribe were at my direction and personally dictated by me. I have reviewed the chart and agree that the record accurately reflects my personal performance of the history, physical exam, medical decision making, and the department course for this patient. I have also personally directed, reviewed, and agree with the discharge instructions and disposition. Disposition - Clinical Impression Clinical Impression: Colitis - Patient ED Disposition Is Patient to be Admitted: No Discussed With : Sherwin Carmen Doctor Will See Patient In The: Office Counseled Patient/Family Regarding: Studies Performed, Diagnosis, Need For Followup, Rx Given - Disposition Referrals: Sherwin Carmen MD [Family Provider] - Disposition: Routine/Home Disposition Time: 16:17 Condition: FAIR Prescriptions: Dicyclomine [Dicyclomine HCl] 10 mg PO Q8 #10 cap Doxycycline Hyclate 100 mg PO BID #20 capsule Instructions: Colitis Forms: [facility] ([employer]) Print Language: VIET[place]ESE
[2018-05-04 12:50] LABS: BASO % 0.3 % (0.0-2.0); EOS % 0.1 % (0.0-4.0); LYMPH # 0.7 K/uL (1.0-4.3); LYMPH % 8.6 % (20.0-40.0); MEAN CELL VOLUME 69.2 fl (81.0-99.0); MEAN CORPUSCULAR HGB CONC 31.8 g/dL (33.0-37.0); MEAN PLATELET VOLUME 9.7 fl (7.2-11.7); MONO # 0.2 K/uL (0.0-0.8); MONO % 2.3 % (0.0-10.0); NEUT # 6.8 K/uL (1.8-7.0); NEUT % 88.7 % (50.0-75.0); PLATELET COUNT 185 K/uL (130-400); RBC 5.45 Mil/uL (3.80-5.20); RED CELL DISTRIBUTION WIDTH 21.8 % (11.5-14.5); WHITE BLOOD COUNT 7.7 K/uL (4.8-10.8)
[2018-05-04 12:57] LABS: ALB/GLOB RATIO 1.3 (1.0-2.1); ALBUMIN 4.1 g/dL (3.5-5.0); ALT/SGPT 18 U/L (9-52); AST/SGOT 25 U/L (14-36); BLOOD UREA NITROGEN 15 mg/dl (7-17); CALCIUM 9.7 mg/dL (8.4-10.2); GFR NON-AFRICAN AMERICAN > 60
[2018-05-04] MEDS: Sodium Chloride 0.9% 1,000 ML IV STA (13:06)
[2018-05-04 13:53] LABS: URINE BILIRUBIN NEGATIVE (NEGATIVE); URINE BLOOD NEGATIVE (NEGATIVE); URINE CLARITY CLEAR (Clear); URINE COLOR COLORLESS (YELLOW); URINE GLUCOSE (UA) NEG (NEGATIVE); URINE LEUKOCYTE ESTERASE NEG Leu/uL (Negative); URINE PROTEIN NEGATIVE (NEGATIVE); URINE UROBILINOGEN 0.2-1.0 mg/dL (0.2-1.0)
[2018-05-04] MEDS ORDERED: Potassium Chloride 20 mEq ER Tab PO ONE (13:57)
[2018-05-04] MEDS: Potassium Chloride 20 mEq ER Tab PO ONE (14:07)
[2018-05-04 14:10] LABS: ANISOCYTOSIS MODERATE; BASOPHIL 1 % (0-2); LARGE PLATELETS PRESENT; LYMPHOCYTE 7 % (20-50); MICROCYTOSIS MODERATE; MONOCYTE 3 % (0-10); NEUTROPHIL 89 % (42-75); OVALOCYTES SLIGHT; PLATELET ESTIMATE NORMAL (NORMAL); TOTAL CELLS COUNTED 100
[2018-05-04] MEDS ORDERED: Iohexol 300 100 ML IJ ONE (14:31)
--- NOTE | 2018-05-04 16:25 | CT ---
Date of service: 05/04/2018 PROCEDURE: CT Abdomen and Pelvis with contrast HISTORY: Abdominal pain COMPARISON: None available. TECHNIQUE: CT scan of the abdomen and pelvis was performed after administration of intravenous contrast. Oral contrast was not administered. Coronal and sagittal reformatted images were obtained. Contrast dose: 90 mL Omnipaque 300 Radiation dose: Total exam DLP = 527.41 mGy-cm. This CT exam was performed using one or more of the following dose reduction techniques: Automated exposure control, adjustment of the mA and/or kV according to patient size, and/or use of iterative reconstruction technique. FINDINGS: LOWER THORAX: The visualized lungs bases are clear. There is subsegmental atelectasis in the lingula. LIVER: Normal in size with homogeneous enhancement. A subcentimeter low-attenuation lesion in the right hepatic lobe is too small to characterize by CT criteria. No ductal dilatation. GALLBLADDER AND BILE DUCTS: Well distended. No calcified gallstones, wall thickening or pericholecystic fluid. PANCREAS: Mild diffuse atrophy. Normal homogeneous enhancement. No gross lesion or ductal dilatation. SPLEEN: Normal in size and appearance. ADRENALS: No discrete nodule. KIDNEYS AND URETERS: Normal in size with homogeneous enhancement. No hydronephrosis. There is a 2.0 cm simple cyst in the right lower pole. VASCULATURE: No aortic aneurysm. There are aortic atherosclerotic calcifications present. BOWEL: Evaluation of the bowel is limited in the absence of oral contrast. The small bowel loops are normal in caliber. There is sigmoid diverticulosis. There is apparent mild circumferential mural thickening in the sigmoid colon. No evidence of significant pericolonic inflammatory changes or micro perforation. No abscess. APPENDIX: No inflammatory changes in the right lower quadrant. PERITONEUM: No free fluid. No free air. LYMPH NODES: No enlarged lymph nodes. BLADDER: Well distended and normal in appearance. REPRODUCTIVE: The uterus is normal in size. BONES: No acute fracture. There is diffuse bone demineralization and multilevel degenerative changes in the spine. OTHER FINDINGS: There is a small sliding hiatal hernia. IMPRESSION: Sigmoid diverticulosis. Apparent mild circumferential mural thickening in the sigmoid colon without significant pericolonic inflammatory changes, micro perforation or abscess. Although findings could be related to underdistention, early nonspecific acute infectious/inflammatory sigmoid diverticulitis is also a consideration. Clinical follow-up is advised.
[2018-05-04 18:28] VITALS: BP 140/84; PULSE 90
== END 2018-05-04 16:18 | disposition home or self-care (01) ==
LOC: H.ER 10:38
DX: K52.9 Noninfective gastroenteritis and colitis, unspecified (principal); E78.00 Pure hypercholesterolemia, unspecified; I10 Essential (primary) hypertension; K57.30 Diverticulosis of large intestine without perforation or abscess without bleeding
CPT/HCPCS: 74177; 80053; 81003; 85025; 96374; 99285; J1885; J7030; Q9967